=== PATIENT | female | born 1975 | race Hispanic/Latino ===

== ENCOUNTER 2017-03-02 08:57 | Outpatient (CLI) | payer OTHER ==
--- NOTE | 2017-03-02 15:36 | Mammography Report ---
BILATERAL DIGITAL SCREENING MAMMOGRAM with CAD: 03/02/17 08:57:00 CLINICAL: Baseline screening. FINDINGS: There are bilateral scattered areas of fibroglandular density.Right asymmetries require additional imaging.No mass, architectural distortion or suspicious calcifications. The left breast is negative. IMPRESSION: Right asymmetries requiring additional workup. BI-RADS CATEGORY: 0--Needs Additional Imaging RECOMMENDATION: Recall for right lateralmedial and spot compression MLO and CC views and right breast ultrasound if needed. COMMENT: Patient follow-up letters are generated by our [employer] application.
== END 2017-03-02 08:58 | disposition home or self-care (01) ==
LOC: SPVWC 08:57
PROVIDERS: ATTEND Obstetrics & Gynecology
DX: Z12.31 Encounter for screening mammogram for malignant neoplasm of breast (principal)
CPT/HCPCS: 77067; G0202

== ENCOUNTER 2019-09-12 10:00 | Outpatient (CLI) | payer OTHER ==
--- NOTE | 2019-09-12 15:52 | Mammography Report ---
DIGITAL SCREENING MAMMOGRAM WITH CAD, 09/12/2019 INDICATION: Routine screening mammography. TECHNIQUE: Digital bilateral 2D mammography was obtained in the craniocaudal and mediolateral obliq ue projections. This examination was interpreted with the benefit of Computer-Aided Detection analysi s. COMPARISON: 03/02/2017 FINDINGS: Breast Density: There are scattered areas of fibroglandular density. Right asymmetries require additional imaging. No architectural distortion or suspicious calcification s. There is no evidence of dominant mass, suspicious calcifications or architectural distortion in th e left breast. IMPRESSION: Right asymmetries requiring additional workup. Recommend recall for right lateral medial and spot compression MLO and CC views and right breast ultrasound if needed. Follow up recommendation: Special View: Spot Category 0: Incomplete. Needs additional imaging evaluation and/or prior mammograms for comparison. A "normal" or negative report should not discourage follow up or biopsy of a clinically significant f inding. A written summary of these findings will be mailed to the patient. The patient will be entered into a mammography reporting system which will generate a reminder letter for the patient's next appointmen t at the appropriate interval. The [employer] recommends yearly mammograms starting at age 40 and continuing as l anil as a woman is in good health. Breast MRI is recommended for women with an approximate 20-25% or greater lifetime risk of breast cancer, including women with a strong family history of breast or ova rashmi cancer or who have been treated for Hodgkin's disease. Signer Name: Timo Soto MD Signed: 09/12/2019 3:47 PM Workstation Name: [id number]
== END 2019-09-12 10:01 | disposition home or self-care (01) ==
LOC: SPVWC 10:00
PROVIDERS: ATTEND Obstetrics & Gynecology
DX: Z12.31 Encounter for screening mammogram for malignant neoplasm of breast (principal)
CPT/HCPCS: 77067